=== PATIENT | male | born 1975 | race Caucasian/White ===

== ENCOUNTER 2022-06-10 06:34 | Inpatient (IN) | payer OTHER ==
[~2022-06-10] VITALS: Ht 185.4 cm; Wt 141.0 kg
[2022-06-10] MEDS ORDERED: LACTATED RINGER'S 2,000 ML IV ONE (07:00)
[2022-06-10 07:45] LABS: INR 1.04 (0.9-1.15); Partial Thromboplastin Time 21.1 sec (24.6-33.4)
[2022-06-10] MEDS ORDERED: IPRATROPIUM BROM 0.5 MG/2.5ML INH SOL NEB ONE (07:45)
[2022-06-10] MEDS ORDERED: ALBUTEROL SULF 2.5 MG/0.5ML(0.5%) NEB SOLN NEB ONE ×2 (07:45→11:30)
[2022-06-10] MEDS ORDERED: DexAMETHasone SOD PHOS 10MG/1ML VIAL INJ IV ONE (07:45)
[2022-06-10 07:59] LABS: Basophils # (auto) 0 10 ^3/uL (0-0.2); Basophils % (auto) 0.4 % (0.0-2.0); Eosinophils # (auto) 0 10 ^3/uL (0-0.8); Eosinophils % (auto) 0.2 % (0.0-7.0); Hemoglobin 14.9 g/dL (13.5-17.5); Lymphocytes # (auto) 0.5 10 ^3/uL (0.4-5.4); Lymphocytes % (auto) 4.2 % (10.0-50.0); Mean Corpuscular Hemoglobin 29.7 pg (28.0-32.0); Mean Corpuscular Hgb Conc. 31.1 g/dL (32.0-36.0); Mean Corpuscular Volume 95.6 fL (80.0-100.0); Monocytes # (auto) 0.9 10 ^3/uL (0-1.3); Monocytes % (auto) 7.7 % (0.0-12.0); Neutrophils # (auto) 10.4 10 ^3/uL (1.6-8.6); Neutrophils % (auto) 87.5 % (37.0-80.0); Nucleated Red Blood Cells % 0.1 %; Red Blood Cells 5.02 10^6/uL (4.5-5.90); Red Cell Distribution Width 16.6 % (11.8-14.3); White Blood Cell 11.8 10^3/uL (4.4-10.8)
[2022-06-10 08:04] LABS: Lactic Acid w/Reflex 3.1 mmol/L (0.4-2.0)
[2022-06-10] MEDS ORDERED: cefTRIAXone 1GM/50ML D5W 50 ML IV ONE (09:15)
[2022-06-10] MEDS ORDERED: AZITHROMYCIN 500MG/ 250ML 250 ML IV ONE (10:15)
[2022-06-10 10:42] VITALS: BP 115/63
[2022-06-10 11:11] LABS: Alkaline Phosphatase 82 U/L (45-117); Anion Gap 11 (5-15); BUN/Creatinine Ratio 5.7; Blood Urea Nitrogen 13 mg/dL (7-18); Carbon Dioxide 23 mmol/L (21-32); Chloride 95 mmol/L (98-107); GFR African American 40 mL/min; GFR Non-African American 33 mL/min; Glucose 399 mg/dL (74-106); Sodium 129 mmol/L (136-145)
[2022-06-10 11:12] LABS: Alanine Aminotransferase 56 U/L (16-61); Albumin 3.4 g/dL (3.4-5.0); Aspartate Aminotransferase 40 U/L (15-37); Bilirubin, Total 0.3 mg/dL (0.2-1.0); Blood Alcohol < 3.0 mg/dL (0-5); Calcium 8.6 mg/dL (8.5-10.1); Lipase 105 U/L (73-393); Magnesium 2.5 mg/dL (1.6-2.6); Phosphorus 6.4 mg/dL (2.5-4.90); Total Protein 7.8 g/dL (6.4-8.2)
[2022-06-10 11:14] LABS: Potassium 6.7 mmol/L (3.5-5.1)
[2022-06-10 11:20] VITALS: BP 116/76
[2022-06-10 11:27] LABS: Amphetamine Screen, Urine NEGATIVE (NEGATIVE); Barbiturate Scree,Urine NEGATIVE (NEGATIVE); Benzodiazephine Screen, Urine NEGATIVE (NEGATIVE); Cannabinoid Screen, Urine NEGATIVE (NEGATIVE); Cocaine Screen, Urine NEGATIVE (NEGATIVE); Opiate Scree,Urine NEGATIVE (NEGATIVE); Phencyclidine Screen, Urine NEGATIVE (NEGATIVE)
[2022-06-10] MEDS ORDERED: SODIUM ZIRCONIUM CYCL 10 GM PAK PO ONE (11:30)
[2022-06-10] MEDS ORDERED: SODIUM BICARBONATE 8.4% INJ 50ML SYRINGE IV ONE (11:30)
[2022-06-10] MEDS ORDERED: CALCIUM GLUC 1,000mg/50ml-NS 50 ML IV ONE (11:30)
[2022-06-10] MEDS ORDERED: InsuLIN REG 1unit/0.01ml Soln (100units/ml) IV ONE (11:30)
[2022-06-10] MEDS ORDERED: DEXTROSE (50%) 50ML SYRG IV ONE (11:30)
[2022-06-10] MEDS ORDERED: SODIUM CHLORIDE 0.9% 1,000 ML IV ONE (12:15)
[2022-06-10] MEDS ORDERED: NITROGLYCERIN 0.4 MG SL TAB SL PRN (12:15)
[2022-06-10] MEDS ORDERED: MORPHINE SULFATE INJ 2 MG/ml SYRG IV PRN (12:15)
[2022-06-10 12:25] LABS: Albumin 3.4 g/dL (3.4-5.0); BUN/Creatinine Ratio 6.5; Bilirubin, Total 0.3 mg/dL (0.2-1.0); Calcium 8.5 mg/dL (8.5-10.1); Total Protein 7.3 g/dL (6.4-8.2)
[2022-06-10 12:36] LABS: Potassium 7.3 mmol/L (3.5-5.1)
[2022-06-10 13:08] VITALS: BP 103/65
[2022-06-10] MEDS: ALBUTEROL SULF 2.5 MG/0.5ML(0.5%) NEB SOLN NEB SCH ×3 (13:08→21:55)
[2022-06-10 14:01] LABS: Urine Blood 1+ /uL (Negative)
[2022-06-10] MEDS: methylPREDNISolone SOD SUCC 125 MG/2 ML VL IV SCH (17:55)
[2022-06-10 21:09] LABS: Protein, Urine 95.6 mg/dL (0.0-11.9)
[2022-06-11] VITALS (7 sets, daily range): BP systolic 114–155; BP diastolic 75–88
[2022-06-11] MEDS: methylPREDNISolone SOD SUCC 125 MG/2 ML VL IV SCH ×4 (00:21→18:27)
[2022-06-11 04:27] LABS: Hemoglobin 15.3 g/dL (13.5-17.5); Mean Corpuscular Hemoglobin 30.4 pg (28.0-32.0); Mean Corpuscular Hgb Conc. 31.8 g/dL (32.0-36.0); Mean Corpuscular Volume 95.6 fL (80.0-100.0); Red Blood Cells 5.02 10^6/uL (4.5-5.90); Red Cell Distribution Width 16.8 % (11.8-14.3); White Blood Cell 10.8 10^3/uL (4.4-10.8)
[2022-06-11 04:45] LABS: BUN/Creatinine Ratio 12.3; Calcium 9.2 mg/dL (8.5-10.1); Potassium 5.3 mmol/L (3.5-5.1)
[2022-06-11 04:56] LABS: Basophils % (manual) 0 (0.0-2.0); Blast Cells 0; Eosinophils % (manual) 0 (0-7); Metamyelocytes % 0; Monocytes % (manual) 0 (0-12); Myelocytes % 0; Promyelocytes % 0; Reactive Lymphocytes 0
[2022-06-11] MEDS: ALBUTEROL SULF 2.5 MG/0.5ML(0.5%) NEB SOLN NEB SCH ×5 (06:18→22:02)
[2022-06-11] MEDS ORDERED: DEXTROSE (50%) 50ML SYRG IV PRN (06:30)
[2022-06-11] MEDS: ACCU-CHEK COMFORT CURVE STRIP VI SCH ×4 (06:31→21:40)
[2022-06-11 06:54] LABS: Band Neutrophils % (manual) 6; Lymphocytes % (manual) 2 (10.0-50.0)
[2022-06-11] MEDS: InsuLIN REG 1unit/0.01ml Soln (100units/ml) SC SCH ×4 (07:00→21:49)
[2022-06-11] MEDS: AZITHROMYCIN 500MG/ 250ML 250 ML IV SCH (09:27)
[2022-06-12] MEDS ORDERED: FLUT50SP NAS (00:10)
[2022-06-12] MEDS ORDERED: MET50T PO (00:10)
[2022-06-12] MEDS ORDERED: EMPA1TAB PO (00:10)
[2022-06-12] MEDS ORDERED: UMEC1INH INH (00:10)
[2022-06-12] MEDS ORDERED: LORA-340 (00:10)
[2022-06-12] MEDS ORDERED: METF-869 PO (00:10)
[2022-06-12] MEDS ORDERED: ALIR75IN2 SC (00:10)
[2022-06-12] MEDS ORDERED: TAMS1CAP25 PO (00:10)
[2022-06-12] MEDS ORDERED: DOCU100C10 PO (00:10)
[2022-06-12] MEDS ORDERED: EMPA1TAB3 PO (00:10)
[2022-06-12] MEDS ORDERED: LOSA-39 PO (00:10)
[2022-06-12] MEDS ORDERED: OMEP-260 PO (00:10)
[2022-06-12] MEDS ORDERED: BECL80AE11 INH (00:10)
[2022-06-12] MEDS: methylPREDNISolone SOD SUCC 125 MG/2 ML VL IV SCH ×2 (00:30→06:00)
[2022-06-12] MEDS: ALBUTEROL SULF 2.5 MG/0.5ML(0.5%) NEB SOLN NEB SCH ×5 (02:04→18:42)
[2022-06-12 04:47] VITALS: BP 132/65
[2022-06-12 05:32] LABS: Basophils # (auto) 0 10 ^3/uL (0-0.2); Basophils % (auto) 0.4 % (0.0-2.0); Eosinophils # (auto) 0 10 ^3/uL (0-0.8); Hematocrit 46.2 % (41.0-53.0); Hemoglobin 14.3 g/dL (13.5-17.5); Lymphocytes # (auto) 0.4 10 ^3/uL (0.4-5.4); Lymphocytes % (auto) 3.8 % (10.0-50.0); Mean Corpuscular Hemoglobin 29.3 pg (28.0-32.0); Mean Corpuscular Volume 94.5 fL (80.0-100.0); Monocytes # (auto) 0.4 10 ^3/uL (0-1.3); Monocytes % (auto) 3.5 % (0.0-12.0); Neutrophils # (auto) 10.5 10 ^3/uL (1.6-8.6); Neutrophils % (auto) 92.3 % (37.0-80.0); Red Blood Cells 4.89 10^6/uL (4.5-5.90); Red Cell Distribution Width 16.6 % (11.8-14.3); White Blood Cell 11.4 10^3/uL (4.4-10.8)
[2022-06-12 05:52] LABS: BUN/Creatinine Ratio 26.8; Calcium 9.5 mg/dL (8.5-10.1); Potassium 5.1 mmol/L (3.5-5.1)
[2022-06-12] MEDS: ACCU-CHEK COMFORT CURVE STRIP VI SCH ×4 (06:31→21:22)
[2022-06-12] MEDS: InsuLIN REG 1unit/0.01ml Soln (100units/ml) SC SCH ×4 (06:33→21:23)
[2022-06-12 08:00] VITALS: BP 139/81
[2022-06-12 09:00] VITALS: BP 139/81
[2022-06-12] MEDS ORDERED: cefTRIAXone 1GM/50ML D5W 50 ML IV SCH (09:00)
[2022-06-12] MEDS: AZITHROMYCIN 500MG/ 250ML 250 ML IV SCH (09:13)
[2022-06-12] MEDS ORDERED: methylPREDNISolone SOD SUCC 125 MG/2 ML VL IV SCH (10:00)
[2022-06-12 13:00] VITALS: BP 139/90
[2022-06-12] MEDS ORDERED: METOPROLOL TARTRATE 50 MG TAB PO SCH (16:30)
[2022-06-12] MEDS ORDERED: PRED20TA2 PO (16:34)
[2022-06-12] MEDS ORDERED: DOXY-286 PO (16:34)
[2022-06-12 16:53] VITALS: BP 155/90
[2022-06-12] MEDS: METOPROLOL TARTRATE 50 MG TAB PO SCH ×2 (17:12→21:00)
[2022-06-12 17:50] VITALS: BP_SYST 140; BP_SYST 155; BP_DIAS 89; BP_DIAS 90
[2022-06-12] MEDS ORDERED: LABETALOL HCL 5 MG/ML 4ML SYRINGE IV ONE (18:45)
== END 2022-06-12 21:44 | disposition home or self-care (01) | DRG 133 ==
LOC: ER 06:34 → EDBD 06:34 → TELE 12:06 → TELE-WESTW 06-11 05:13
PROVIDERS: ADMIT Internal Medicine; ATTEND Internal Medicine
PROC: 5A09357 Assistance with Respiratory Ventilation, Less than 24 Consecutive Hours, Continuous Positive Airway Pressure (ICD-10-PCS; 2022-06-10)
PROC: 5A09357 Assistance with Respiratory Ventilation, Less than 24 Consecutive Hours, Continuous Positive Airway Pressure (ICD-10-PCS; principal; 2022-06-11)
PROC: 5A09357 Assistance with Respiratory Ventilation, Less than 24 Consecutive Hours, Continuous Positive Airway Pressure (ICD-10-PCS; 2022-06-12)
DX: J96.21 Acute and chronic respiratory failure with hypoxia (principal); N17.0 Acute kidney failure with tubular necrosis; E11.10 Type 2 diabetes mellitus with ketoacidosis without coma; J18.9 Pneumonia, unspecified organism; E11.22 Type 2 diabetes mellitus with diabetic chronic kidney disease; I48.91 Unspecified atrial fibrillation; E66.2 Morbid (severe) obesity with alveolar hypoventilation; J44.0 Chronic obstructive pulmonary disease with (acute) lower respiratory infection; J96.22 Acute and chronic respiratory failure with hypercapnia; J44.1 Chronic obstructive pulmonary disease with (acute) exacerbation; E87.5 Hyperkalemia; E11.65 Type 2 diabetes mellitus with hyperglycemia; Z20.822 Contact with and (suspected) exposure to COVID-19; F17.210 Nicotine dependence, cigarettes, uncomplicated; I12.9 Hypertensive chronic kidney disease with stage 1 through stage 4 chronic kidney disease, or unspecified chronic kidney disease; I25.10 Atherosclerotic heart disease of native coronary artery without angina pectoris; J98.11 Atelectasis; N18.9 Chronic kidney disease, unspecified; Z98.61 Coronary angioplasty status; Z68.41 Body mass index [BMI] 40.0-44.9, adult; Z79.84 Long term (current) use of oral hypoglycemic drugs
CPT/HCPCS: 36415; 36600; 71045; 71250; 76775; 80048; 80053; 80307; 80320; 81001; 82010; 82140; 82570; 82805; 82962; 83605; 83690; 83735; 83880; 83930; 84100; 84132; 84156; 84300; 84484; 85007; 85025; 85027; 85610; 85730; 87426; 87804; 93005; 94640; 94660; 96361; 96365; 96375; 99291; G0378; J0696; J1100; J1815; J3490